=== PATIENT | female | born 1995 | race Caucasian/White ===

== ENCOUNTER 2023-12-20 10:09 | Emergency (ER) | payer MEDICARE, MEDICAID, SELFPAY ==
--- NOTE | ~2023-12-20 | XR_ITS ---
EXAMINATION: XR HAND, RIGHT CLINICAL INFORMATION: Injured, painful COMPARISON: None TECHNIQUE: 3 views of the hand FINDINGS: No fracture or dislocation. Mild negative ulnar variance. Joint spaces are otherwise maintained. No cortical erosion. Mild soft tissue swelling along the dorsum of the hand. XR/XR hand RT min 3V IMPRESSION: 1. No acute osseous abnormality. Mild soft tissue swelling along the dorsum of the hand. 2. Mild negative ulnar variance. Electronically signed by: Farzaneh Sarmiento MD 12/20/2023 12:06 PM EDT
[2023-12-20 10:23] VITALS: BP 119/56; PULSE 72; RESP 18; TEMP 36.8; O2SAT 98; BMI 32.2
--- NOTE | 2023-12-20 11:06 | ED_ITS ---
HPI - Extremity Problem General Chief complaint: Extremity Injury, Upper Stated complaint: r hand inj Time Seen by Provider: 12/20/23 11:05 Source: patient Mode of arrival: ambulatory Limitations: no limitations History of Present Illness ED Provider: Denice Jorge PA-C HPI Narrative: Patient is a 27 year old assigned female at with no reported medical history presenting to the emergency department today with right thumb pain. Patient states that she was playing flag football when she jammed her right thumb against another players leg. Patient denies any dizziness, lightheadedn ess, abdominal pain, nausea, vomiting, fever, chills, blurry vision, double vision, loss of vision, chest pain, difficulty breathing, shortness of breath, back pain, night sweats, pain with urination, increased urinary frequency, increased urinary urgency, blood in her urine or stool, syncope or a near syncopal episode, bowel incontinence, bladder incontinence, or any other complaints at this time. Relieving factors: nothing Exacerbating factors: range of motion Associated symptoms: denies other symptoms Related Data Allergies Allergy/AdvReac Type Severity Reaction Status Date / Time apple Allergy Hives Verified 12/20/23 10:24 pear Allergy Hives Verified 12/20/23 10:24 Sulfa (Sulfonamide Allergy Hives Verified 12/20/23 10:24 Antibiotics) sulfamethoxazole Allergy Hives Verified 12/20/23 10:24 [From Bactrim] trimethoprim [From Bactrim] Allergy Hives Verified 12/20/23 10:24 Review of Systems Constitutional: Constitutional: Reports no additional constitutional complaints, Denies chills, Denies fever(s) and Denies night sweats Eyes: Eyes: Reports no additional eye complaints, Denies blurry vision, Denies change in vision, Denies diplopia, Denies eye discharge, Denies loss of vision and Denies eye pain ENT: Denies dizziness Cardiovascular: Cardiovascular: Reports no additional cardiovascular complaints, Denies chest pain, Denies lightheadedness, Denies Loss of Consciousness and Denies dyspnea Respiratory: Respiratory: Reports no additional respiratory complaints and Denies dyspnea Gastrointestinal: Gastrointestinal: Reports no additional gastrointestinal complaints, Denies abdominal pain, Denies melena, Denies hematochezia, Denies change in bowel habits and Denies change in stool character Genitourinary: Genitourinary: Denies hematuria, Denies urinary frequency, Denies dysuria, Denies urinary incontinence, Denies urinary hesitancy and Denies urinary urgency Musculoskeletal: Musculoskeletal: Reports no additional musculoskeletal complaints, Denies numbness and Denies tingling Comments: right thumb pain Neurologic: Denies dizziness, Denies loss of vision, Denies numbness and Denies tingling Psychiatric: Psychiatric: Reports no additional psychiatric complaints Endocrine: Endocrine: Reports no additional endocrine complaints Hematologic/Lymphatic: Hematologic/Lymphatic: Reports no additional hematologic/lymphatic complaints Allergic/Immunologic: Allergic/Immunologic: Reports no additional allergic/immunologic complaints [facility] Past Medical History Attestation statement: The following information was validated with the patient. Source: old records reviewed and nursing notes reviewed Social History Social History Advance Directives: No Advance Directives Information Provided: No Do you have a plan to hurt others: No Plan Physical Exam Vital Signs: Vital Signs: Last Vital Signs Temp 98.3 F 12/20/23 12:31 Pulse 72 12/20/23 12:31 Resp 18 12/20/23 12:31 BP 119/56 L 12/20/23 12:31 Pulse Ox 98 12/20/23 12:31 O2 Del Method Room Air 12/20/23 12:31 BMI result Body Mass Index 32.2 Const: General: cooperative, no acute distress, alert and awake Nutritional Appearance: well nourished Orientation/consciousness: patient oriented x3 Limitations: no limitations HEENT: Head: Yes normal to inspection and Yes atraumatic Ears: hearing grossly normal bilaterally and external ears normal General nose exam: Normal external nose present, no nasal discharge noted and no epistaxis Face and sinus: Yes normal facial exam, No abrasion and No laceration Mouth: Normal oral and palatal mucosa present, no drooling and no muffled voice Eyes: General: appearance normal, both eyes and all related structures Periorbital: periorbital findings normal Eyelids: Yes eyelids normal Conjunctivae: conjunctivae normal Pupils: Equal, round and reactive pupils present EOM: EOMs intact bilaterally Neck: Neck: Yes normal visual inspection, Yes full ROM and Yes no lymphadenopathy Chest: Chest palpation & inspection: normal inspection of the chest Resp: Effort & Inspection: normal respiratory effort and able to speak in complete sentences GI: Inspection: Yes normal to inspection Neuro: General: patient oriented x3 and moves all extremities Cranial nerves: Yes Equal, round and reactive pupils present Cognition (Neuro): normal cognition Extrem: Other: significant snuff box tenderness of the right hand inability to touch right thumb to any right finger tips General: Yes normal to inspection and Yes capillary refill normal Psych: Appearance: grossly normal Mental Status: mental status grossly normal Affect: normal affect Attitude: cooperative Thought process: Normal thought process present Thought content: Normal thought content present Insight: Good insight present (Psych) Medical Decision Making Medical Decision Making MDM Narrative: Patient is a 27 year old assigned female at with no reported medical history presenting to the emergency department today with right thumb pain. Patient's physical exam was as noted in the physical exam portion of this note and concerning for scaphoid fracture vs. ulnar collateral ligament injury. Patient's right hand x-ray showed no acute process. I explained my physical exam findings as well as all test results to the patient. I answered all questions asked by the patient. Patient's right hand / wrist was placed in a thumb spica splint, without incident. Patient's PMS was intact prior to and after splint placement. I stressed the importance of the patient taking her medication as directed (either prescribed or as the over the counter packaging recommends). I stressed the importance of the patient following up with his primary care provider and an orthopedic provider. I stressed the importance of the patient returning to the emergency department immediately if her symptoms were to worsen or if she were to develop any dizziness, shortness of breath, difficulty breat davy, chest pain, blurry vision, loss of vision, nausea, vomiting, abdominal pain, fever, chills, back pain, or any other complaints. Patient verbalized agreement and understanding with this treatment plan and discharge. Differential Diagnosis Differential Diagnoses: The differential diagnosis associated with the presentation includes Thumb sprain Thumb strain Scaphoid fracture UCL injury Admission/Observation Consideration of admission/observation: Escalation of care including admission/observation considered Patient would have been admitted to the hospital had her work up had any findings where hospital admission was appropriate and her clinical presentation warranted hospital admission. Independent Interpretation I performed an independent interpretation of an: Plain X-Ray Interpretation: My interpretation is in agreement with the radiologist's impression of this imaging study. EXAMINATION: XR HAND, RIGHT CLINICAL INFORMATION: Injured, painful COMPARISON: None TECHNIQUE: 3 views of the hand FINDINGS: No fracture or dislocation. Mild negative ulnar variance. Joint spaces are otherwise maintained. No cortical erosion. Mild soft tissue swelling along the dorsum of the hand. XR/XR hand RT min 3V IMPRESSION: 1. No acute osseous abnormality. Mild soft tissue swelling along the dorsum of the hand. 2. Mild negative ulnar variance. Electronically signed by: Farzaneh Sarmiento MD 12/20/2023 12:06 PM EDT RP Dictated By: Farzaneh Sarmiento MD Signed By: Electronically signed by Farzaneh Sarmiento MD 12/20/23 1206 Radiology Impression Discussion of test interpretation with radiology: I have reviewed the radiologist's reading. Procedures Orthopedic Splinting/Casting Injury #1: Side: right Upper Extremity Injury Location: finger (thumb) Upper Extremity Immobilizer: thumb spica Discharge Plan Discharge Clinical Impression: Sprain of hand, thumb, right Patient Disposition: Home, Self-Care Instructions: Sprain (ED), Skier's Thumb (ED), Scaphoid Fracture (ED) Additional Instructions: Your x-ray did not show any obvious breaks/fractures however, your physical exam findings are concerning for a possible scaphoid fracture and/or an ulnar collateral ligament injury. You may remove the splint to shower but it otherwise should remain on. The splint should never be so tight your fingers have a change in sensation. Follow up with your primary care provider and an orthopedic provider. Return to the emergency department immediately if your symptoms worsen or if you develop any dizziness, shortness of breath, difficulty breathing, chest pain, blurry vision, loss of vision, nausea, vomiting, abdominal pain, fever, chills, back pain, or any other complaints. Referrals: Shivani Willoughby [Other] [facility] [place] [facility] [Provider Group] (Call to establish and follow up with an material specialist. ) Interventions: ED Discharge Assessment Last Done: 12/20/23 12:31 Discharge Date/Time: 12/20/23 12:47 Print Language: Armenian
[2023-12-20 12:31] VITALS: BP 119/56; PULSE 72; RESP 18; TEMP 36.8; O2SAT 98
== END 2023-12-20 12:47 | disposition home or self-care (01) ==
PROVIDERS: Emergency Provider Emergency Medicine; PCP Family Medicine
DX: S63.601A Unspecified sprain of right thumb, initial encounter (principal); W51.XXXA Accidental striking against or bumped into by another person, initial encounter; Y93.62 Activity, american flag or touch football; Y92.321 Football field as the place of occurrence of the external cause; Y99.9 Unspecified external cause status
CPT/HCPCS: 29125; 73130; 99282; 99283

== ENCOUNTER 2024-10-18 15:01 | Emergency (ER) | payer MEDICARE, MEDICAID, SELFPAY ==
--- NOTE | ~2024-10-18 | CT_ITS ---
EXAMINATION: CT HEAD WITHOUT IV CONTRAST CLINICAL INFORMATION: head strike ? concussion COMPARISON: None available. TECHNIQUE: Contiguous axial imaging was performed from the skull base to vertex without intravenous administration of contrast. This CT examination was performed using dose optimization techniques as appropriate, variously including the following: *Automated exposure control *Adjustment of mA and/or kV according to patient size (this includes techniques or standardized protocols for targeted exams where dose is matched to indication/reason for exam; i.e. extremities or head) *Use of iterative reconstruction technique FINDINGS: Brain parenchyma: No shift of midline structures. No evidence of acute territorial infarct, brain parenchymal hemorrhage or mass effect. Ventricles/extra-axial spaces: No hydrocephalus. No extra-axial fluid collection. Skull/extra-cranial structures: Orbits are unremarkable. Paranasal sinuses and mastoid air cells are clear. No depressed skull fracture. CT/CT head/brain wo IV con IMPRESSION: No acute intracranial pathology. Electronically signed by: Yifan Dill MD 10/18/2024 05:18 PM EDT
--- NOTE | ~2024-10-18 | CT_ITS ---
EXAMINATION: CT CERVICAL SPINE WITHOUT CONTRAST CLINICAL INFORMATION: Neck pain after a trauma COMPARISON: None available. TECHNIQUE: Axial imaging was performed from the base of the skull through T2 without IV contrast. Coronal and sagittal reformatted images were generated from the original axial data set. ALARA: The examination used one or more of the following radiation dose reduction techniques: Automated exposure control, iterative reconstruction, and/or adjustment of mA and/or KV. DLP: 1041 mGY*cm FINDINGS: There is mild reversal cervical lordosis. No fracture lines are evident. No fracture lines are evident. CT/CT cervical spine wo IV con IMPRESSION: There is mild reversal of cervical lordosis. This can be related to positioning, muscle spasm, or posterior soft tissue injury. No fracture line is evident. Electronically signed by: Jair Schmidt MD 10/18/2024 05:09 PM EDT
[2024-10-18 15:43] VITALS: BP 130/96; PULSE 81; RESP 16; TEMP 36.6; O2SAT 100; BMI 29.1
--- NOTE | 2024-10-18 16:17 | ED_ITS ---
HPI - Head Injury General Chief complaint: Head Injury Stated complaint: head inj football Time Seen by Provider: 10/18/24 17:54 Source: patient Mode of arrival: ambulatory Limitations: no limitations History of Present Illness ED Provider: Denice Jorge PA-C HPI Narrative: Patient is a 28 year old assigned female at with no reported medical history presenting to the emergency department today with a headache and difficulty word finding. Patient states that she hit the back of her head while playing tackle football on 10/17/2024 and has been having pain / difficulty word finding. Patient denies any dizziness, lightheadedness, abdominal pain, nausea, vomiting, fever, chills, blurry vision, double vision, loss of vision, chest pain, difficulty breathing, shortness of breath, back pain, night sweats, pain with urination, increased urinary frequency, increased urinary urgency, blood in her urine or stool, syncope or a near syncopal episode, bowel incontinence, bladder incontinence, or any other complaints at this time. MD Complaint: head injury Related Data Allergies Allergy/AdvReac Type Severity Reaction Status Date / Time apple Allergy Hives Verified 10/18/24 15:45 pear Allergy Hives Verified 10/18/24 15:45 Sulfa (Sulfonamide Allergy Hives Verified 10/18/24 15:45 Antibiotics) sulfamethoxazole (From Allergy Hives Verified 10/18/24 15:45 Bactrim) trimethoprim (From Bactrim) Allergy Hives Verified 10/18/24 15:45 Review of Systems Constitutional: Constitutional: Reports no additional constitutional complaints, Denies chills, Denies fever(s), Reports headache(s) and Denies night sweats Eyes: Eyes: Reports no additional eye complaints, Denies blurry vision, Denies change in vision, Denies diplopia, Denies eye discharge, Denies loss of vision and Denies eye pain ENT: Denies dizziness and Reports headache(s) Cardiovascular: Cardiovascular: Reports no additional cardiovascular complaints, Denies chest pain, Denies lightheadedness, Denies Loss of Consciousness and Denies dyspnea Respiratory: Respiratory: Reports no additional respiratory complaints and Denies dyspnea Gastrointestinal: Gastrointestinal: Reports no additional gastrointestinal complaints, Denies abdominal pain, Denies melena, Denies hematochezia, Denies change in bowel habits and Denies change in stool character Genitourinary: Genitourinary: Denies hematuria, Denies urinary frequency, Denies dysuria, Denies urinary incontinence, Denies urinary hesitancy and Denies urinary urgency Musculoskeletal: Musculoskeletal: Reports no additional musculoskeletal complaints, Denies numbness and Denies tingling Neurologic: Denies dizziness, Reports headache(s), Denies loss of vision, Denies numbness and Denies tingling Comments: difficulty word finding Psychiatric: Psychiatric: Reports no additional psychiatric complaints Endocrine: Endocrine: Reports no additional endocrine complaints Hematologic/Lymphatic: Hematologic/Lymphatic: Reports no additional hematologic/lymphatic complaints Allergic/Immunologic: Allergic/Immunologic: Reports no additional allergic/immunologic complaints COUNTS INCLUDE 234 BEDS AT THE [facility] Past Medical History Attestation statement: The following information was validated with the patient. Source: old records reviewed and nursing notes reviewed Social History Social History Advance Directives: No Advance Directives Information Provided: No Physical Exam Vital Signs: Vital Signs: Last Vital Signs Temp 97.9 F 10/18/24 18:01 Pulse 81 10/18/24 18:01 Resp 16 10/18/24 18:01 BP 130/96 H 10/18/24 18:01 Pulse Ox 100 10/18/24 18:01 O2 Del Method Room Air 10/18/24 18:01 BMI result Body Mass Index 29.1 Const: General: cooperative, no acute distress, alert and awake Nutritional Appearance: well nourished Orientation/consciousness: patient oriented x3 HEENT: Head: Yes normal to inspection and Yes atraumatic Ears: hearing grossly normal bilaterally and external ears normal General nose exam: Normal external nose present, no nasal discharge noted and no epistaxis Face and sinus: Yes normal facial exam, No abrasion and No laceration Mouth: Normal oral and palatal mucosa present, no drooling and no muffled voice Eyes: General: appearance normal, both eyes and all related structures Periorbital: periorbital findings normal Eyelids: Yes eyelids normal Conjunctivae: conjunctivae normal Pupils: Equal, round and reactive pupils present EOM: EOMs intact bilaterally Neck: Neck: Yes normal visual inspection, Yes full ROM and Yes no ly mphadenopathy Resp: Effort & Inspection: normal respiratory effort and able to speak in complete sentences Neuro: General: patient oriented x3, moves all extremities and CN's II-XI intact bilaterally Cranial nerves: Yes Equal, round and reactive pupils present Cognition (Neuro): normal cognition Extrem: General: Yes normal to inspection, Yes full ROM and Yes capillary refill normal Psych: Appearance: grossly normal Mental Status: mental status grossly normal Affect: normal affect Attitude: cooperative Thought process: Normal thought process present Thought content: Normal thought content present Insight: Good insight present (Psych) Course Course Course Narrative: This is a Rapid Medical Examination (RME) performed by Kevin Varghese PA-C in triage. Full HPI, ROS, assessment and treatment plan per primary provider in the Main ED. Hx: 28-year-old female here for eval of head strike occurring yesterday while playing tackle football. Reports posterior head strike, no LOC. reports history of concussions times 10. Reports sensitivity to light, difficulty finding words today. No thinners. Plan: Imaging Medical Decision Making Medical Decision Making [facility] Narrative: Patient is a 28 year old assigned female at with no reported medical history presenting to the emergency department today with a headache and trouble word finding after a head injury. Patient's physical exam was unremarkable. Patient's CT head and c-spine showed no acute process. I explained my physical exam findings as well as all test results to the patient. I answered all questions asked by the patient. I stressed the importance of the patient taking her medication as directed (either prescribed or as the over the counter packaging recommends). I stressed the importance of the patient following up with her primary care provider. I stressed the importance of the patient returning to the emergency department immediately if her symptoms were to worsen or if she were to develop any dizziness, shortness of breath, difficulty breathing, chest pain, blurry vision, loss of vision, nausea, vomiting, abdominal pain, fever, chills, back pain, or any other complaints. Patient verbalized agreement and understanding with this treatment plan and discharge. Differential Diagnosis Differential Diagnoses: The differential diagnosis associated with the presentation includes Concussion Head injury Admission/Observation Consideration of admission/observation: Escalation of care including admission/observation considered Patient would have been admitted to the hospital had her work up had any findings where hospital admission was appropriate and her clinical presentation warranted hospital admission. Lab Data [facility] Lab Attestation statement: I reviewed the patient's lab results. My interpretation of these studies and their corresponding values is that they are grossly normal. Labs: Lab Results 07/14/25 Range/Units 17:06 Beta HCG, Quant < 2 mIU/mL Independent Interpretation I performed an independent interpretation of an: CT Scan Interpretation: My interpretation is in agreement with the radiologist's impression of these imaging studies. Report Number: [id number]: Total DLP = 1041.00 mGy-cm EXAMINATION: CT HEAD WITHOUT IV CONTRAST CLINICAL INFORMATION: head strike ? concussion COMPARISON: None available. TECHNIQUE: Contiguous axial imaging was performed from the skull base to vertex without intravenous administration of contrast. This CT examination was performed using dose optimization techniques as appropriate, variously including the following: *Automated exposure control *Adjustment of mA and/or kV according to patient size (this includes techniques or standardized protocols for targeted exams where dose is matched to indication/reason for exam; i.e. extremities or head) *Use of iterative reconstruction technique FINDINGS: Brain parenchyma: No shift of midline structures. No evidence of acute territorial infarct, brain parenchymal hemorrhage or mass effect. Ventricles/extra-axial spaces: No hydrocephalus. No extra-axial fluid collection. Skull/extra-cranial structures: Orbits are unremarkable. Paranasal sinuses and mastoid air cells are clear. No depressed skull fracture. CT/CT head/brain wo IV con IMPRESSION: No acute intracranial pathology. Electronically signed by: Yifan Dill MD 10/18/2024 05:18 PM EDT Dictated By: Yifan Dill MD Signed By: Electronically signed by Yifan Dill MD 10/18/24 1718 Report Number: [id number]: Total DLP = 1041.00 mGy-cm EXAMINATION: CT CERVICAL SPINE WITHOUT CONTRAST CLINICAL INFORMATION: Neck pain after a trauma COMPARISON: None available. TECHNIQUE: Axial imaging was performed from the base of the skull through T2 without IV contrast. Coronal and sagittal reformatted images were generated from the original axial data set. ALARA: The examination used one or more of the following radiation dose reduct ion techniques: Automated exposure control, iterative reconstruction, and/or adjustment of mA and/or KV. DLP: 1041 mGY*cm FINDINGS: There is mild reversal cervical lordosis. No fracture lines are evident. No fracture lines are evident. CT/CT cervical spine wo IV con IMPRESSION: There is mild reversal of cervical lordosis. This can be related to positioning, muscle spasm, or posterior soft tissue injury. No fracture line is evident. Electronically signed by: Jair Schmidt MD 10/18/2024 05:09 PM EDT RP Dictated By: Jair Schmidt MD Signed By: Electronically signed by Jair Schmidt MD 10/18/24 1709 Radiology Impression Discussion of test interpretation with radiology: I have reviewed the radiologist's reading. Discharge Plan Discharge Clinical Impression: Closed head injury Qualifiers: Encounter type: initial encounter Qualified Code(s): S09.90XA - Unspecified injury of head, initial encounter Concussion without loss of consciousness Qualifiers: Encounter type: initial encounter Qualified Code(s): S06.0X0A - Concussion without loss of consciousness, initial encounter Patient Disposition: Home, Self-Care Instructions: Concussion (ED), Head Injury (DC) Additional Instructions: Follow up with your primary care provider. Return to the emergency department immediately if your symptoms worsen or if you develop any numbness, tingling, dizziness, shortness of breath, difficulty breathing, chest pain, blurry vision, loss of vision, nausea, vomiting, abdominal pain, fever, chills, back pain, or any other complaints. Please see the information below about our Patient Portal. If you are not yet enrolled in the [facility] Patient Portal, you will receive an enrollment email invitation following your visit to any [facility] [place] [place]. You may also self-enroll in the Patient Portal by visiting our website: [email or web address] The following information is required to access the Patient Portal: - [place] [facility] [place] - Your personal home email address (must match what is in your electronic medical record, Registration staff can assist with this) - Name - Date of Capabilities of the Patient Portal: - Message some providers - View upcoming appointments - Access your health summary, medical history, and visit history - View current conditions and allergies - View procedure and lab results - View your medications, including guidelines, side effects, and precautions - Complete pre-appointment questionnaires requested by your provider - Ready summary reports of your office visits and procedures To access the Patient Portal Mobile [employer], follow these directions: - Search [employer] in the [employer] Store or [employer] Store - Download the [employer] - Search for [facility] - Enter your login/password Referrals: Shivani Willoughby MD [Primary Care Provider, Family Practice] Stand Alone Forms: Work/School Release Interventions: ED Discharge Assessment Last Done: 10/18/24 18:01 Discharge Date/Time: 10/18/24 18:02 Print Language: Syrian
[2024-10-18 18:01] VITALS: BP 130/96; PULSE 81; RESP 16; TEMP 36.6; O2SAT 100
--- NOTE | 2024-10-18 18:01 | PC.NURSE ---
PT WAS SEEN AND DISCHARGED BY TRIAGE PROVIDER
== END 2024-10-18 18:02 | disposition home or self-care (01) ==
LOC: HO.ED 18:00
PROVIDERS: Physician Assistant Medical; Emergency Provider Emergency Medicine; PCP Family Medicine
DX: M54.2 Cervicalgia (principal); S06.0X0A Concussion without loss of consciousness, initial encounter; W18.30XA Fall on same level, unspecified, initial encounter; Y93.61 Activity, american tackle football; Y92.9 Unspecified place or not applicable; Y99.9 Unspecified external cause status
CPT/HCPCS: 36415; 70450; 72125; 84702; 99282; 99284

== ENCOUNTER → 2024-10-18 15:46 | Outpatient (BNV) | payer MEDICARE, MEDICAID, SELFPAY | PROVIDERS: Emergency Provider Emergency Medicine; PCP Family Medicine; Visit Provider Radiology Diagnostic Radiology | DX: S09.90XA Unspecified injury of head, initial encounter (principal) | CPT/HCPCS: 70450 ==

== ENCOUNTER 2024-11-20 23:55 | Emergency (ER) | payer MEDICARE, MEDICAID, SELFPAY ==
--- NOTE | ~2024-11-20 | XR_ITS ---
CLINICAL HISTORY: injury playing foot ball 2 view right knee Comparison: None provided Findings: Bones intact. No dislocations. No joint effusion. No radiopaque foreign body. IMPRESSION: 1. No acute findings. This document has been electronically signed by: Estuardo Mitchell MD on 11/21/2024 01:37:17
[2024-11-21 00:12] VITALS: BP 125/80; PULSE 76; RESP 20; TEMP 36.7; O2SAT 97; BMI 32.6
--- NOTE | 2024-11-21 01:23 | ED.LOWEXIN ---
HPI - Extremity Injury (Lower) General Chief Complaint: Extremity Injury, Lower Stated Complaint: injury to the right leg playing football Time Seen by Provider: 11/21/24 01:05 Source: patient Mode of arrival: ambulatory Limitations: no limitations History of Present Illness ED Provider: Dr. Gabriella Skelton HPI Narrative: patient comes to the emergency room complaining of right-sided knee pain. Patient states that she was playing football, went for a tackle and crashed with a known player. Patient states that her right knee bent in an awkward position. Patient states that she has not been able to put any weight on her knee. Denies any other injuries, denies loss of consciousness, not on blood thinners. Related Data Previous Rx's ?Medication ?Instructions ?Recorded acetaminophen 500 mg capsule 500 mg PO Q6H PRN fever or pain 11/21/24 #20 caps ibuprofen 600 mg tablet 600 mg PO Q8H PRN fever or pain 11/21/24 #20 tabs Allergies Allergy/AdvReac Type Severity Reaction Status Date / Time apple Allergy Hives Verified 11/21/24 00:15 pear Allergy Hives Verified 11/21/24 00:15 Sulfa (Sulfonamide Allergy Hives Verified 11/21/24 00:15 Antibiotics) sulfamethoxazole (From Allergy Hives Verified 11/21/24 00:15 Bactrim) trimethoprim (From Bactrim) Allergy Hives Verified 11/21/24 00:15 Review of Systems Review of Systems: Constitutional : No Weight loss, No Fever, No Chills, No Night Sweats, No Fatigue, No Malaise ENT/Mouth : No Hearing loss, No Ear Pain, No Nasal Congestion, No Sinus Pain, No Hoarseness, No sore throat, No Rhinorrhea, No Swallowing Difficulty Eyes: No Eye Pain, No Swelling, No Redness, No Foreign Body, No Discharge, No Vision Changes Cardiovascular : No Chest Pain, No SOB, No Dyspnea on Exertion, No Orthopnea, No Edema, No Palpitations Respiratory : No Cough, No Sputum, No Wheezing, No Smoke Exposure, No Dyspnea Gastrointestinal : No Nausea, No Vomiting, No Diarrhea, No Constipation, No abdominal Pain, No Hematochezia, No Melena Genitourinary : no irregular bleeding, No Dysuria, No Urinary Frequency, No Hematuria, No Urinary Incontinence, No Urgency, No Flank Pain, No Urinary Flow Changes, No Hesitancy Musculoskeletal : Complaining of right-sided knee pain No Myalgias, No Joint Swelling Skin : No Skin Lesions, No rash Neuro : No Weakness, No Numbness, No Paresthesias, No Loss of Consciousness, No Dizziness, No Headache Psych : No Anxiety/Panic, No Depression, No SI/HI/AH/VH, No Social Issues, Heme/Lymph: No Bruising, No Bleeding,No Lymphadenopathy Endocrine : No Polyuria, No Polydipsia, No Temperature Intolerance [facility] Social History Social History Advance Directives: No Physical Exam Exam: Exam: Appearance: Alert. Oriented X3. No acute distress. Eyes: Pupils equal, round and reactive to light. ENT: Pharynx normal. Neck: Normal inspection. Neck supple. No lymph nodes noted. No crepitus CVS: Normal heart rate and rhythm. Pulses normal. Normal S1 and S2 Respiratory: No respiratory distress. Breath sounds normal. No Wheezing. No rales Abdomen: Soft and nontender. No rigidity. No distention. Skin: Skin warm and dry. Normal skin color. Normal skin turgor. Extremities: No lower extremity edema. patient's knee looks normal, no swelling, no ecchymosis. patient's elbow to flex the knee but hurts doing so, has trouble extending. No obvious deformity. Patient can not bear weight due to pain in the Neuro: Oriented X 3. No motor deficit. No sensory deficit. Moving all extremities. No slurred speech. CN 2 through 12 grossly intact Psych: calm, cooperative, normal affect Vital Signs: Vital Signs: Last Vital Signs Temp 98.0 F 11/21/24 00:12 Pulse 76 11/21/24 00:12 Resp 20 11/21/24 00:12 BP 125/80 11/21/24 00:12 Pulse Ox 97 11/21/24 00:12 O2 Del Method Room Air 11/21/24 00:12 BMI result Body Mass Index 32.6 Medical Decision Making Medical Decision Making [facility] Narrative: my interpretation of x-rays: No obvious abnormality, normal alignment, no obvious fractures, no patellar dislocation I discussed with the patient that she likely has a meniscal tear versus ligamentous injury. Patient was given IM ketorolac. Provided with knee brace and crutches. Instructed to follow-up with the primary care physician. Patient may need an MRI if she has no symptomatic improvement. Patient agrees with plan. Differential Diagnosis Differential Diagnoses: The differential diagnosis associated with the presentation includes ( Patellar dislocation, fracture, meniscus injury, ligamentous tear) Independent Interpretation I performed an independent interpretation of an: Plain X-Ray Discharge Plan Discharge Clinical Impression: Injury of knee, ligament Patient Disposition: Home, Self-Care Instructions: Crutch Instructions (ED), P.R.I.C.E. Treatment (ED), ACL Injury (ED) Additional Instructions: Please follow-up with your primary care physician tomorrow. If you have any worsening or new symptoms, please return to the emergency room or call 911 Prescriptions: New ibuprofen 600 mg tablet 600 mg PO Q8H PRN (Reason: fever or pain) Qty: 20 0RF acetaminophen 500 mg capsule 500 mg PO Q6H PRN (Reason: fever or pain) Qty: 20 0RF Referrals: Alexander Roper PA-C [Physician [employer], Orthopedics] Stand Alone Forms: Work/School Release Print Language: Setswana
--- NOTE | 2024-11-21 01:41 | PC.NURSE ---
reviewed discharge instructions with pt, pt verbalized understanding, education on crutches and splint applied
[2024-11-21 01:42] VITALS: BP 125/80; PULSE 76; RESP 20; TEMP 36.7; O2SAT 97
== END 2024-11-21 01:42 | disposition home or self-care (01) ==
PROVIDERS: Emergency Provider Emergency Medicine; PCP Family Medicine
DX: S89.91XA Unspecified injury of right lower leg, initial encounter (principal); X58.XXXA Exposure to other specified factors, initial encounter; Y93.61 Activity, american tackle football; Y92.9 Unspecified place or not applicable; Y99.9 Unspecified external cause status; M25.561 Pain in right knee
CPT/HCPCS: 73560; 96372; 99284; J1885

== ENCOUNTER → 2024-11-21 23:41 | Outpatient (BNV) | payer MEDICARE, MEDICAID, SELFPAY | PROVIDERS: Emergency Provider Emergency Medicine; PCP Family Medicine; Visit Provider Radiology Diagnostic Radiology | DX: M25.561 Pain in right knee (principal) | CPT/HCPCS: 73560 ==

== ENCOUNTER 2024-11-30 08:31 | Outpatient (REF) | payer MEDICARE, MEDICAID, SELFPAY ==
--- NOTE | ~2024-11-30 | XR_ITS ---
EXAMINATION: XR KNEE, RIGHT CLINICAL INFORMATION: M25.569 - Pain in unspecified knee COMPARISON: 11/21/2024 TECHNIQUE: AP view bilateral knees standing, patellofemoral view right knee. FINDINGS: LEFT Knee: No fracture, dislocation, or bone lesion. Normal alignment. Preserved joint spaces. Normal soft tissues. RIGHT Knee: No fracture, dislocation, or suspicious bone lesion. Joint spaces are preserved. Normal knee and patellar alignment. Normal soft tissues. XR/XR knee RT 2V IMPRESSION: 1. Normal right knee. Electronically signed by: Ladarius Asher MD 11/30/2024 02:00 PM EDT
== END 2024-11-30 08:32 | disposition home or self-care (01) ==
LOC: HO.HOSX 08:31
PROVIDERS: Visit Provider Physician Assistant
DX: M23.91 Unspecified internal derangement of right knee (principal)
CPT/HCPCS: 73560; 99202

== ENCOUNTER 2024-11-30 13:38 | Outpatient (AMB) | payer MEDICARE, MEDICAID, SELFPAY ==
--- OUTSIDE RECORDS SUMMARY | 2005-07-09 20:00 | XMS_ITS | Continuity of Care Document ---
Author Organization [facility] Address [address] [place] [address] Phone Care Team Providers Care Oracle Fusion Developer Name Role Phone Unavailable Unavailable Unavailable Medications Medication Instructions Dosage Effective Dates (start - stop) Status Comments acetaminophen 160 mg/5 mL Elixir 1 tsp po q 4 hrs prn - Active Advance Directives Directive Yes / No Effective Date File Name No Information Encounters Encounter Description Practice Location Reason(s) For Visit Diagnoses Date Provider Providers Copied on Encounter [facility], [address] [place] [address],[address], [id number], tel:[phone] [facility] Acute pharyngitis Jul-0 5200 6 No Information [facility], [address] [place] [address],[address], [id number], tel:[phone] Converted Locations No Information 5 No Information [facility], [address] [place] [address], [id number], tel:[phone] [facility] Headache 5 No Information [facility], [address] [place] [address],[address], [id number], tel:[phone] [facility] Unspecified follow-up examination 5 No Information Family [...] Record Payers Payer name Insurance type Covered republican ID Authoriza tion(s) No Information Social History Type Description Quantity Date Captured Comments Sex Female Smoking Status No Information Sexual Orientation Straight or heterosexual Chief Complaint And Reason For Visit No [...]
[2024-11-30 13:49] VITALS: BMI 32.6
--- NOTE | 2024-11-30 13:49 | A.OFFVIS_ITS ---
Vital Signs 11/30/24 13:49 Height 5 ft 4 in Weight 190 lb BMI 32.6 Intake Visit Reasons: FC- Rt leg meniscal tear DOI: 11/20/24 Intake Note: Louisa is a 28 year old female who presents today for a evaluation of her right knee injury, DOI 11/20/24. Patient states she was playing football and when she went for a tackle, she crashed with a known player. Patient states that her right knee bent in an awkward position. Patient states that she wasn't able to put much weight on her knee. Patient was seen at the ED and was given a knee brace and crutches. The brace provided by the ED is loose and not helping at this time. Patient has concerns of her pain being unbearable and shoots down the leg. Her pain is worse with and without movement. If needed, patient will agree with physical therapy. IMPRESSION: 1. No acute findings. Allergies apple Allergy (Verified 11/30/24 13:52) Hives pear Allergy (Verified 11/30/24 13:52) Hives Sulfa (Sulfonamide Antibiotics) Allergy (Verified 11/30/24 13:52) Hives sulfamethoxazole (From Bactrim) Allergy (Verified 11/30/24 13:52) Hives trimethoprim (From Bactrim) Allergy (Verified 11/30/24 13:52) Hives HPI HPI FC- Rt leg meniscal tear DOI: 11/20/24: Details: Ms. Julio is a 28-year-old female who presents to the office today for evaluation s/p right knee injury that happened while playing football. She reports that she went in for a tackle and another player hit her. It is unclear how exactly the knee was bent however she reports that it bent awkwardly and folded under her. She felt immediate pain and has been having difficulty weightbearing ever since. She was using crutches to assist with ambulation as well as a knee immobilizer given to her by the emergency department. However, she states that it was very difficult to coordinate the crutches with ambulation and therefore she discontinued. Additionally, the brace was not fitting properly and kept sliding down causing more pain. Review of Systems Const All systems reviewed & are unremarkable except as noted in HPI and below Physical Exam Vital Signs: BMI result Body Mass Index 32.6 Const General: cooperative, healthy appearing and no acute distress Resp Effort & Inspection: normal respiratory effort and able to speak in complete s entences Extrem Other: Right knee no erythema, ecchymosis or joint effusion. Range of motion is 30 to 80 degrees. Patient is able to actively engage the quad muscle and no palpable defect of the quad tendon. She is able to actively extend to 30 degrees, is not tender over the patellar tendon nor is there a palpable defect. She is ex quisitely tender to the lateral joint line. Unable to perform anterior drawer or Kallie's due to patient guarding and pain. NVI. Psych Appearance: grossly normal Mental Status: mental status grossly normal Attitude: cooperative Assessment & Plan Assessment & Plan (1) Internal derangement of right knee: Code(s): M23.91 - Unspecified internal derangement of right knee Category: Medical Plan Ms. Julio is a 28-year-old female who presents to the office today for evaluation s/p right knee injury that happened while playing football. She reports that she went in for a tackle and another player hit her. It is unclear how exactly the knee was bent however she reports that it bent awkwardly and folded under her. She felt immediate pain and has been having difficulty weightbearing ever since. She was using crutches to assist with ambulation as well as a knee immobilizer given to her by the emergency department. However, she states that it was very difficult to coordinate the crutches with ambulation and therefore she discontinued. Additionally, the brace was not fitting properly and kept sliding down causing more pain. While in the office today, I have recommended MRI imaging to further evaluate the integrity of the right knee and surrounding structures. The patient is unable to bear full weight on the right knee due to pain. Additionally, she is unable to tolerate Kallie's or anterior drawer due to pain and guarding. It is unclear if her lack of range of motion is due to pain or mechanical blockage. X-ray imaging is negative for any acute pathology therefore, I do feel that this is soft tissue related and only an MRI will be able to assess this properly. I have given the patient a playmaker knee brace off the shelf while in the office today that she should wear only during activity. Patient will follow up after the MRIs obtained, sooner if needed. X-rays of the right knee which were obtained while in the office today and were reviewed by me, Swapna Ramirez PA-C, revealed no acute fracture or dislocation. Orders: Orders MR knee RT wo con Today M23.91 - Unspecified internal derangement of right knee XR knee RT 2V Today M25.569 - Pain in unspecified knee Coding Level of Care Code New Pt Level 4 (91478) Diagnoses Internal derangement of right knee M23.91
== END 2024-11-30 14:28 | disposition home or self-care (01) ==
LOC: HO.HOS 13:38
PROVIDERS: PCP Family Medicine; Visit Provider Physician Assistant
DX: M23.91 Unspecified internal derangement of right knee (principal)
CPT/HCPCS: 99204

== ENCOUNTER → 2024-11-30 13:40 | Outpatient (BNV) | payer MEDICARE, MEDICAID, SELFPAY | PROVIDERS: Visit Provider Radiology Diagnostic Radiology | DX: M25.561 Pain in right knee (principal) | CPT/HCPCS: 73560 ==

== ENCOUNTER 2024-12-29 10:01 | Outpatient (REF) | payer MEDICARE, MEDICAID, SELFPAY ==
--- OUTSIDE RECORDS SUMMARY | 2005-07-09 20:00 | XMS_ITS | Continuity of Care Document ---
Author Organization [facility] Address [address] [place] [address] Phone Care Team Providers Care Social Worker Clinical Name Role Phone Unavailable Unavailable Unavailable Medications Medication Instructions Dosage Effective Dates (start - stop) Status Comments acetaminophen 160 mg/5 mL Elixir 1 tsp po q 4 hrs prn - Active Advance Directives Directive Yes / No Effective Date File Name No Information Encounters Encounter Description Practice Location Reason(s) For Visit Diagnoses Date Provider Providers Copied on Encounter [facility], [address] [place] [address],[address], [id number], tel:[phone] [facility] Acute pharyngitis Jul-0 200 6 No Information [facility], [address] [place] [address], [id number], tel:[phone] Converted Locations No Information 5 No Information [facility], [address] [place] [address], [id number], tel:[phone] [facility] Headache 5 No Information [facility], [address] [place] [address],[address], [id number], tel:[phone] [facility] Unspecified follow-up examination 5 No Information Family [...] Record Payers Payer name Insurance type Covered libertarian ID Authoriza tion(s) No Information Social History [...]
--- NOTE | ~2024-12-29 | MR_ITS ---
CLINICAL HISTORY: M23.91 - Unspecified internal derangement of right knee MR right knee without contrast Comparison: DX/SR - XR KNEE 1-2 VIEWS RIGHT - 11/30/24 13:40 EDT CR - XR KNEE RT 2V - 11/21/24 00:41 EDT Findings: There is increased signal in the posterior horn of the medial meniscus without definitive tear. There is a displaced tear of the body and posterior horn of the lateral meniscus. The anterior and posterior cruciate ligaments are intact. The medial and lateral collateral ligaments are intact without periligamentous edema. There is edema in the posterior lateral corner. The extensor mechanism is intact. Small joint effusion. No Singh's cyst. No fracture line. There is a large amount of bone marrow edema which is most prominent in the distal femur in the lateral femoral condyle and distal metaphysis. Edema is also present in the lateral tibial plateau at the posterior aspect. Trace amount of edema in the fibular epiphysis and proximal metaphysis. There is also a prominent amount of red marrow, greater than expected for the patient's age. 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 Mild amount of signal abnormality in the patellofemoral compartment. The hyaline cartilage is otherwise preserved. Impression: Displaced tear of the body and posterior horn of the lateral meniscus. No cruciate or collateral ligament tears. Small joint effusion. Large amount of bone marrow edema, detailed above. No fracture line. A posttraumatic etiology and/or stress reaction could be considered. Prominent amount of red marrow may indicate marrow reconversion. 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 This document has been electronically signed by: Rika Pineda MD on 12/31/2024 01:17:52
== END 2024-12-29 10:02 | disposition home or self-care (01) ==
LOC: HO.MRI 10:01
PROVIDERS: Visit Provider Physician Assistant
DX: M23.91 Unspecified internal derangement of right knee (principal)
CPT/HCPCS: 73721

== ENCOUNTER → 2024-12-29 10:08 | Outpatient (BNV) | payer MEDICARE, MEDICAID, SELFPAY | PROVIDERS: Visit Provider Radiology Diagnostic Radiology | DX: M23.251 Derangement of posterior horn of lateral meniscus due to old tear or injury, right knee (principal); M25.461 Effusion, right knee | CPT/HCPCS: 73721 ==

== ENCOUNTER 2025-01-13 13:15 | Outpatient (AMB) | payer MEDICARE, MEDICAID, SELFPAY ==
--- NOTE | 2025-01-13 13:22 | A.OFFVIS_ITS ---
Intake Visit Reasons: OV - right knee MRI review Intake Note: Louisa is a 29 year old female who presents today for a right knee MRI review. Patient reports she is still haivng pain in her knee. She notices that her pain is under her patella and on the lateral aspect of the knee. Patient tends to feel a pulling sensation when she is bending her knee. Allergies apple Allergy (Verified 01/13/25 13:24) Hives pear Allergy (Verified 01/13/25 13:24) Hives Sulfa (Sulfonamide Antibiotics) Allergy (Verified 01/13/25 13:24) Hives sulfamethoxazole (From Bactrim) Allergy (Verified 01/13/25 13:24) Hives trimethoprim (From Bactrim) Allergy (Verified 01/13/25 13:24) Hives HPI HPI OV - right knee MRI review: Details: Ms. Julio is a 28 year old female who presents MRI review of the right knee, DOI 11/20/24. Patient states she was playing football and when she went for a tackle, she crashed with a known player. Patient reports she continues to have pain which is always present and dull in nature. She reports occasionally when twisting she experiences a sharp pain and points to the area over the lateral aspect of the knee. Review of Systems Const All systems reviewed & are unremarkable except as noted in HPI and below Physical Exam Const General: cooperative, healthy appearing and no acute distress Resp Effort & Inspection: normal respiratory effort and able to speak in complete sen tences Extrem Other: Right knee tender to palpation over the lateral joint line. Lacking roughly 10 degrees of full extension. NVI. Psych Appearance: grossly normal Mental Status: mental status grossly normal Attitude: cooperative Assessment & Plan Assessment & Plan (1) Complex tear of lateral meniscus of right knee: Code(s): S83.271A - Complex tear of lateral meniscus, current injury, right knee, initial encounter Category: Medical Plan Louisa is a 28 year old female who presents today for a evaluation of her right knee injury, DOI 11/20/24. Patient states she was playing football and when she went for a tackle, she crashed with a known player. Patient states that her right knee bent in an awkward position. Patient states that she wasn't able to put much weight on her knee. Patient was seen at the ED and was given a knee brace and crutches. The brace provided by the ED is loose and not helping at this time. Patient has concerns of her pain being unbearable and shoots down the leg. Her pain is worse with and without movement. If needed, patient will agree with physical therapy. Dr. Foster was available to meet the patient with me in the office today in a collaborative treatment plan was created.The risks, benefits, and alternatives were discussed in detail with the patient. Risks include but are not limited to: bleeding, infection, blood clots (DVT/PE), stiffness, persistent pain, nerve/vessel injury, anesthesia risks, recurrence of symptoms, and need for further surgery. Benefits: pain relief, improved function, removal/repair of torn cartilage, improved mobility. Alternatives: continued non-operative management (physical therapy, medications, injections). The patient had ample opportunity to ask questions. All questions were answered to the patient's satisfaction. The patient verbalized understanding and agreed to move forward with a right knee arthroscopy with Dr. Foster. The patient demonstrates understanding of the risks, benefits and alternatives. Our surgical schedule as able to meet with the patient while in the office today. Coding Level of Care Code Est Pt Level 4 (67449) Diagnoses Complex tear of lateral meniscus of right knee S83.271A
== END 2025-01-13 14:12 | disposition home or self-care (01) ==
LOC: HO.HOS 13:16
PROVIDERS: Visit Provider Physician Assistant
DX: S83.271A Complex tear of lateral meniscus, current injury, right knee, initial encounter (principal)
CPT/HCPCS: 99214

== ENCOUNTER → 2025-01-13 13:15 | Outpatient (BNVA) | payer MEDICARE, MEDICAID, SELFPAY | PROVIDERS: Visit Provider Physician Assistant | DX: S83.271A Complex tear of lateral meniscus, current injury, right knee, initial encounter (principal) | CPT/HCPCS: 99212 ==

== ENCOUNTER 2025-01-26 07:48 | Day surgery (SDC) | payer MEDICARE, MEDICAID, SELFPAY ==
[2025-01-21 14:46] VITALS: BMI 32.6
--- NOTE | 2025-01-24 10:14 | HO.ANESPROP2 ---
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 If so, by whom?: No Are you DNR?: No Advance Directives: No (will bring dos) Advance Directives Information Provided: Yes Advance Directives on File: No Patient : No FDLMP: 01/14/2025 Poor oral hygiene: No Meds Allergies Allergy/AdvReac Type Severity Reaction Status Date / Time apple Allergy Hives Verified 01/13/25 13:24 pear Allergy Hives Verified 01/13/25 13:24 Sulfa (Sulfonamide Allergy Hives Verified 01/13/25 13:24 Antibiotics) sulfamethoxazole (From Allergy Hives Verified 01/13/25 13:24 Bactrim) trimethoprim (From Bactrim) Allergy Hives Verified 01/13/25 13:24 Home Medications ?Medication ?Instructions ?Recorded ?Confirmed ?Last Taken ?Type bupropion HCl 100 mg tablet,12 hr 100 mg PO BID 11/30/24 01/21/25 01/26/25 History sustained-release clonidine HCl 0.1 mg tablet 0.1 mg PO DAILY PRN Anxiety 11/30/24 01/21/25 Unknown History escitalopram oxalate 20 mg tablet 20 mg PO QAM 11/30/24 01/21/25 01/26/25 History valacyclovir 1 gram tablet 1,000 mg PO TID 01/21/25 01/21/25 Unknown History Exam Height,Weight and Vital Signs: Height 5 ft 4 in Weight 86.183 kg Assessment and Plan Assessment Anesthesia Assessment: Chart Reviewed Documented by User: Carleen Castrejon MD 01/26/25 09:41 PMFSH Past Medical History Medical History Herpes Chronic patellofemoral pain Anxiety Hx of renal calculi Family History Family history of problems with anesthesia: No Surgical History Surgical History Hx of cystoscopy History of surgical removal of ganglion cyst (06/2022) History of Problems with Anesthesia: No Social History Social History Are you a primary child care provider to a significant other at home: Yes (2 children) Do you presently have visiting nurse or other home services: No Patient Tobacco Use Status: Former Tobacco user Tobacco use type: Cigarette e-Cigarette/Vaping Use: Currently Using Use of substances other than those prescribed or required for medical reasons: Yes Substance Use Frequency: Daily Have you been hit, kicked, punched, or otherwise hurt by someone within the past year? If so, by whom?: No Are you DNR?: No Advance Directives: No (will bring dos) Advance Directives Information Provided: Yes Advance Directives on File: No Patient : No FDLMP: 01/14/2025 Poor oral hygiene: No Meds Allergies Allergy/AdvReac Type Severity Reaction Status Date / Time apple Allergy Hives Verified 01/13/25 13:24 pear Allergy Hives Verified 01/13/25 13:24 Sulfa (Sulfonamide Allergy Hives Verified 01/13/25 13:24 Antibiotics) sulfamethoxazole (From Allergy Hives Verified 01/13/25 13:24 Bactrim) trimethoprim (From Bactrim) Allergy Hives Verified 01/13/25 13:24 Home Medications ?Medication ?Instructions ?Recorded ?Confirmed ?Last Taken ?Type bupropion HCl 100 mg tablet,12 hr 100 mg PO BID 11/30/24 01/21/25 01/26/25 History sustained-release clonidine HCl 0.1 mg tablet 0.1 mg PO DAILY PRN Anxiety 11/30/24 01/21/25 Unknown History escitalopram oxalate 20 mg tablet 20 mg PO QAM 11/30/24 01/21/25 01/26/25 History valacyclovir 1 gram tablet 1,000 mg PO TID 01/21/25 01/21/25 Unknown History Exam Airway Mallampati Class: II TM Dist: >3cm Neck ROM: Full Heart: rrr Lungs: cta Assessment and Plan Assessment Anesthesia Assessment: Anesthesia Plan Discussed and Smoking Cess. Discussed (smokes both pot (daily )and cigarettes ) Final Anesthetic Review Family History of Problems with Anesthesia: No History of Problems with Anesthesia: No NPO: Yes ASA Class: II Final Preanesthetic Review: No Changes in Pt Med Stat, Meds/Allgs Chart Reviewed, Consent Obtained/Reviewed and Anes Risks/Benef Reviewed Patient Risk: Intermediate Procedure Risk: Low Anesthetic Plan Anesthetic Plan: GA and Agree w/ Assess. and Plan Disposition: Standard PACU
[2025-01-26 07:56] VITALS: BP 125/77; PULSE 57; RESP 18; TEMP 36.9; O2SAT 97
[2025-01-26 08:08] VITALS: BMI 32.2
[2025-01-26 08:12] LABS: UPreg QC Valid YES
[2025-01-26] MEDS: Lactated Ringers 1,000 ML 100 ML IVCONT (08:16)
--- NOTE | 2025-01-26 08:39 | MHC.SHP ---
Pre-Procedural Eval Section A - 24 Hr Update-Section A only Date of Service: 01/26/25 The patient is an INPATIENT: No Changes since office visit: No Cold of Flu in the past 2 weeks, No New Medical Problems, No Changes in Medication and No Patient answered all questions The patient has been examined within 24 hours of the surgical procedure. The History & Physical has been completed within 30 days and I have reviewed it.: Yes Section B - Complete if H&P > 30 days Chief Complaint: Complex tear of medial meniscus, current injury, Allergies: Allergies Allergy/AdvReac Type Severity Reaction Status Date / Time apple Allergy Hives Verified 01/13/25 13:24 pear Allergy Hives Verified 01/13/25 13:24 Sulfa (Sulfonamide Allergy Hives Verified 01/13/25 13:24 Antibiotics) sulfamethoxazole (From Allergy Hives Verified 01/13/25 13:24 Bactrim) trimethoprim (From Bactrim) Allergy Hives Verified 01/13/25 13:24 Plan I have reviewed the history and physical and performed a pertinent physical examination on my patient. No changes have occurred unless specified. Time Spent With Patient Time: Total time managing care of this patient today ____ minutes.
[2025-01-26 11:19] VITALS: BP 129/80; PULSE 86; RESP 16; TEMP 36.3; O2SAT 100
--- NOTE | 2025-01-26 11:23 | P.BOP_ITS ---
Brief Operative Note Date of Service: 01/26/25 Pre-op diagnosis: Lateral meniscus tear Post-op diagnosis: same Procedure: Lateral meniscectomy Implants: none Surgeon: Jim Foster MD Anesthesia: GLMA and local Was an Torpedo Shooter used for this Procedure?: No Estimated blood loss (mL): 5 Tourniquet time (min): 20 IV fluids (mL): 500 Pathology: none sent Condition: stable Disposition: PACU
[2025-01-26 11:24] VITALS: BP 138/74; PULSE 69; RESP 18; O2SAT 99
[2025-01-26 11:29] VITALS: BP 119/68; PULSE 72; RESP 20; O2SAT 97
[2025-01-26 11:34] VITALS: BP 126/73; PULSE 70; RESP 16; O2SAT 99
[2025-01-26 11:50] VITALS: BP 128/75; PULSE 70; RESP 16; TEMP 36.1; O2SAT 97
--- NOTE | 2025-01-28 08:38 | W.PM.OPN ---
Operative Note Operative Note Date of Service: 01/26/25 Narrative: Date of Service: 01/26/25 Pre-op diagnosis: Lateral meniscus tear Post-op diagnosis: same Procedure: Lateral meniscectomy Implants: none Surgeon: Jim Foster MD Anesthesia: GLMA and local Was an It Network Architect used for this Procedure?: No Estimated blood loss (mL): 5 Tourniquet time (min): 20 IV fluids (mL): 500 Pathology: none sent Condition: stable Disposition: PACU Procedure in detail: Patient was brought to the operating room placed supine on the arthroscopic table and prepped and draped in standard sterile fashion. A time-out was called to identify proper site proper procedure proper surgeon and IV antibiotics per weight were administered. I began by exsanguinating the limb and insufflating tourniquet to 300 mm Hg. Then made a standard anterolateral stab incision. The knee was insufflated with water and 30 degree arthroscope was placed. There was no fibrillations of the patella or trochlea and the suprapatellar pouch and the gutters were clean. I descended into the medial compartment where I made my medial portal under direct visualization. There was a pristine medial compartment with normal and stable medial meniscus. The root was intact. I then examined the notch where the ACL was examined and intact. The lateral compartment was then assessed. There was a posterior lateral flap tear. The root was stable and the capsular attachments anterior to the popliteus was stable. I then used a shaver and a biter to remove the unstable portions of the meniscus. The tear was in the popliteal hiatus and did NOT involve the periphery. Approximately 20% of the meniscal volume was removed. This was the central flap between the popliteus and the root with an intact and stable root and there was no extension anterior to the popliteus. Once I was satisfied with the extent of the resection and the stability of the remaining portion of the meniscus, I then removed all instrumentation and closed the portals with skin glue. 25 mL of 2% Marcaine with epinephrine was injected into the joint and the surrounding soft tissues. Patient was then placed in sterile dressing extubated brought recovery room stable condition. There were no known complications.
== END 2025-01-26 12:38 | disposition home or self-care (01) ==
LOC: HO.SSS 07:49
PROVIDERS: Nurse Practitioner; Visit Provider Orthopaedic Surgery
PROC: (CPT 29870; principal; 2025-01-26 10:00)
DX: S83.271A Complex tear of lateral meniscus, current injury, right knee, initial encounter (principal); M25.561 Pain in right knee; W51.XXXA Accidental striking against or bumped into by another person, initial encounter; X50.1XXA Overexertion from prolonged static or awkward postures, initial encounter; Y93.61 Activity, american tackle football; Y92.9 Unspecified place or not applicable; Y99.9 Unspecified external cause status; Z88.2 Allergy status to sulfonamides; B00.9 Herpesviral infection, unspecified; F41.9 Anxiety disorder, unspecified; Z87.442 Personal history of urinary calculi; Z79.899 Other long term (current) drug therapy; Z98.890 Other specified postprocedural states; Z87.891 Personal history of nicotine dependence
CPT/HCPCS: 29881; 81025; J0131; J0165; J0690; J1100; J2250; J2405; J2704; J2795; J3010

== ENCOUNTER → 2025-01-26 07:48 | Outpatient (BNV) | payer MEDICARE, MEDICAID, SELFPAY | PROVIDERS: Visit Provider Orthopaedic Surgery | DX: S83.281A Other tear of lateral meniscus, current injury, right knee, initial encounter (principal) | CPT/HCPCS: 29881 ==

== ENCOUNTER 2025-02-03 15:13 | Outpatient (AMB) | payer MEDICARE, MEDICAID, SELFPAY ==
--- OUTSIDE RECORDS SUMMARY | 2005-07-09 20:00 | XMS_ITS | Continuity of Care Document ---
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 Role Phone Unavailable Unavailable Unavailable Medications Medication Instructions Dosage Effective Dates (start - stop) Status Comments acetaminophen 160 mg/5 mL Elixir 1 tsp po q 4 hrs prn - Active Advance Directives Directive Yes / No Effective Date File Name No Information Encounters Encounter Description Practice Location Reason(s) For Visit Diagnoses Date Provider Providers Copied on Encounter [facility], [address] [place] [address],[address], [id number], tel:[phone] [facility] Acute pharyngitis Jul-0 200 6 No Information [facility], [address] [place] [address],[address], [id number], tel:[phone] Converted Locations No Information 5 No Information [facility], [address] [place] [address], [id number], tel:[phone] [facility] Headache 5 No Information [facility], [address] [place] [address],[address], [id number], tel:[phone] [facility] Unspecified follow-up examination 5 No Information Family History Family Member Type Diagnosis Age At Onset No Information Immunizations Vaccine Date Status Comments Polio (Injection) administered Source: Libby rangel Immunization Record Diphtheria Tetanus Pertussis administered Source: New Immunization Record Measles Mumps Rubella administered Source : New Immunization Record Diphtheria Tetanus Pertussis administered Source: New Immunization Record Polio (Injection) administered Source: Ne w Immunization Record Measles Mumps Rubella administered Source : New Immunization Record Varicella (Chicken Pox) administered Sour ce: New Immunization Record Hepatitis B (a) CHILD administered Source : New Immunization Record Diphtheria Tetanus Pertussis administered Source: New Immunization Record Diphtheria Tetanus Pertussis administered Source: New Immunization Record Polio (Injection) administered Source: Ne w Immunization Record Diphtheria Tetanus Pertussis administered Source: New Immunization Record Polio (Injection) administered Source: Ne w Immunization Record Hepatitis B (a) CHILD administered Source : New Immunization Record Hepatitis B (a) CHILD administered Source : New Immunization Record Payers Payer name Insurance type Covered green party ID Authoriza tion(s) No Information Social History Type Description Quantity Date Captured Comments Sex Female Smoking Status No Information Chief Complaint And Reason For Visit No Information Reason For Referral Reason For Referral No Information History Of Present Illness Encounter Date Complaint History Of Prese nt Illness No Information Functional Status Date Functional Assessmen t No Information Instructions Date Instruction Additional Infor mation No Information Assessments Type Assessment Date No Information Patient Care Teams Name Effective Dates (start - stop) Status Members No Information
--- NOTE | 2025-02-03 15:32 | MHC.OFFVIS ---
Intake Visit Reasons: PO RT knee 01/26/25 NE Intake Note: Louisa is a 29 year old female who presents today for a post operative appointment status post right knee arthroscopy 01/26/[address] Foster. Patient reports she is doing well. She notices some soreness on her thigh. Allergies apple Allergy (Verified 02/03/25 15:34) Hives pear Allergy (Verified 02/03/25 15:34) Hives Sulfa (Sulfonamide Antibiotics) Allergy (Verified 02/03/25 15:34) Hives sulfamethoxazole (From Bactrim) Allergy (Verified 02/03/25 15:34) Hives trimethoprim (From Bactrim) Allergy (Verified 02/03/25 15:34) Hives HPI HPI PO RT knee 01/26/25 NE: Details: Ms. Julio is a 29-year-old female who presents to the office today status post right knee arthroscopy on 01/26/[address] Foster. Patient underwent a partial lateral meniscectomy. Overall she is doing very well. She denies any pain or difficulty with motion. No additional complaints. 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 Sutures intact. No surrounding erythema or drainage. No signs of infection. Range of motion 0-120. NVI. Psych Appearance: grossly normal Mental Status: mental status grossly normal Attitude: cooperative Assessment & Plan Assessment & Plan (1) Complex tear of lateral meniscus of right knee: Code(s): S83.271A - Complex tear of lateral meniscus, current injury, right knee, initial encounter Category: Medical Plan Ms. Julio is a 29-year-old female who presents to the office today status post right knee arthroscopy on 01/26/[address] Foster. Patient underwent a partial lateral meniscectomy. Overall she is doing very well. She denies any pain or difficulty with motion. No additional complaints. While in the office today, sutures removed and Steri-Strips were applied. She was instructed she can return back to normal activities using pain as her guide. We did discuss the role of formal physical therapy. However, the patient is able to demonstrate full range of motion without pain. Therefore this was declined. She will follow up PRN, sooner if needed. Patient was given a return to work note to return to work full-time regular duty beginning on 02/09/2025. Coding Level of Care Code Global (54832) Diagnoses Complex tear of lateral meniscus of right knee S83.271A
== END 2025-02-03 15:47 | disposition home or self-care (01) ==
LOC: HO.HOS 15:14
PROVIDERS: Visit Provider Physician Assistant
DX: S83.271A Complex tear of lateral meniscus, current injury, right knee, initial encounter (principal)
CPT/HCPCS: 99024

== ENCOUNTER → 2025-02-03 15:13 | Outpatient (BNVA) | payer MEDICARE, MEDICAID, SELFPAY | PROVIDERS: Visit Provider Physician Assistant | DX: S83.271D Complex tear of lateral meniscus, current injury, right knee, subsequent encounter (principal) | CPT/HCPCS: 99212 ==